=== PATIENT | male | born 1975 | race African-American/Black ===

== ENCOUNTER 2024-03-08 06:53 | Emergency (ER) | payer MEDICAID, OTHER ==
--- NOTE | 2024-03-08 07:25 | ED Physician Documentation ---
PD HPI ABD PAIN - Stated complaint Stated Complaint: ABD PX - Chief complaint Chief Complaint: Abd Pain - History obtained from History obtained from: Patient, Family - Additional information Additional information: 49-year-old gentleman with history of NH and stroke on Plavix with history of coronary stenting presents about 5 days of central crampy abdominal pain that is quite severe. On the first day he was vomiting. That is no longer persistent, but he does have watery diarrhea. No sick contacts. He feels like he has had a fever but without measured temperatures. He does have a history of remote appendectomy and about 5 years ago per the had a colonoscopy showing polyps. PD PAST MEDICAL HISTORY - Past Medical History Past Medical History: Yes Cardiovascular: Hypertension, NH Respiratory: None Neuro: CVA Endocrine/Autoimmune: None GI: None : None Psych: None Musculoskeletal: Chronic back pain Derm: None - Past Surgical History Past Surgical History: Yes General: Appendectomy Ortho: Spine surgery Cardiovascular: Coronary stent, Cardiac catheterization - Present Medications Home Medications: Ambulatory Orders Medication Instructions Recorded Confirmed Amox/Clav 875/125 [Augmentin] 1 each PO Q12H #10 tablet 03/08/24 Atorvastatin Calcium [Lipitor] 80 mg PO HS 03/08/24 03/08/24 Clopidogrel Bisulfate [Plavix] 75 mg PO DAILY 03/08/24 03/08/24 Cyclobenzaprine [Flexeril] 10 mg ORAL TID PRN 03/08/24 03/08/24 Diclofenac Sodium 1% Gel [Voltaren 2 gm TOP QID PRN 03/08/24 03/08/24 Gel] Gabapentin [Neurontin] 400 mg PO DAILY PRN 03/08/24 03/08/24 HYDROcod/ACETAM 5/325 [[place] 5/325] 1 - 2 tab PO Q6H PRN #15 tablet 03/08/24 Lisinopril [Zestril] 40 mg PO DAILY 03/08/24 03/08/24 Metoprolol Succinate [Toprol Xl] 25 mg PO DAILY 03/08/24 03/08/24 Ondansetron Odt [Zofran] 4 mg TL Q6H PRN #10 tablet 03/08/24 amLODIPine [Norvasc] 5 mg PO DAILY 03/08/24 03/08/24 hydroCHLOROthiazide [Hydrodiuril] 12.5 mg PO DAILY 03/08/24 03/08/24 traZODone [Desyrel] 50 mg ORAL HS 03/08/24 03/08/24 - Allergies Allergies/Adverse Reactions: Allergies Allergy/AdvReac Type Severity Reaction Status Date / Time No Known Drug Allergies Allergy Verified 03/08/24 07:01 - Social History Does the pt smoke?: Yes Smoking Status: Current every day smoker Does the pt drink ETOH?: Yes Does the pt have substance abuse?: No - Immunizations Immunizations are current?: Yes PD ED PE NORMAL - Vitals Vital signs reviewed: Yes - General General: Alert and oriented X 3, Other (He appears uncomfortable and he is hypertensive) - Cardiac Cardiac: RRR, No murmur - Respiratory Respiratory: No respiratory distress, Clear bilaterally - Abdomen Abdomen: Normal bowel sounds, Other (Mild diffuse tenderness without surgical signs) - Derm Derm: Normal color, Warm and dry - Neuro Neuro: Alert and oriented X 3 Results - Vitals Vitals: Vital Signs - 24 hr 03/08/24 03/08/24 07:02 07:18 Temperature 37 C Heart Rate 84 70 Respiratory 20 16 Rate Blood Pressure 163/104 H 115/99 H O2 Saturation 98 100 Oxygen O2 Source Room air - Labs Labs: Laboratory Tests 03/08/24 03/08/24 03/08/24 07:24 07:24 08:25 WBC 8.5 RBC 5.29 Hgb 14.6 Hct 45.5 MCV 86.0 MCH 27.6 MCHC 32.1 RDW 15.0 Plt Count 282 MPV 9.3 Neut # (Auto) 6.2 Lymph # (Auto) 1.1 L [place] # (Auto) 1.1 H Eos # (Auto) 0.1 Baso # (Auto) 0.0 Absolute Nucleated RBC 0.00 Nucleated RBC % 0.0 Sodium 139 Potassium 3.7 Chloride 104 Carbon Dioxide 29 Anion Gap 6.0 BUN 10 Creatinine 1.3 Estimated GFR (MDRD) 58 L Glucose 107 H Calcium 8.8 Total Bilirubin 0.3 AST 14 ALT 13 Alkaline Phosphatase 69 Total Protein 6.3 L Albumin 3.9 Globulin 2.4 Albumin/Globulin Ratio 1.6 Lipase 62 Urine Color DARK YELLOW Urine Clarity CLEAR Urine pH 5.5 Ur Specific [place] >=1.030 H Urine Protein NEGATIVE Urine Glucose (UA) NEGATIVE Urine Ketones TRACE Urine Occult Blood NEGATIVE Urine Nitrite NEGATIVE Urine Bilirubin NEGATIVE Urine Urobilinogen 0.2 (NORMAL) Ur Leukocyte Esterase NEGATIVE Ur Microscopic Review NOT INDICATED Urine Culture Comments NOT INDICATED - Rads (name of study) CT abdomen pelvis showing ileal and colonic inflammation. Relevant Findings:: Final report received, EMP independent interpretation of test PD Medical Decision Making - ED course ED course: 49-year-old gentleman presents with diffuse crampy abdominal pain with diarrhea. He is status post remote appendectomy with 5-year-old normal colonoscopy per other than polyps. He received 1 mg of IV Dilaudid and 4 mg of IV Zofran with significant improvement in his symptomatology and resolution of his tenderness. Differential diagnosis includes bowel issue, atypical biliary issue, vascular issue. CBC, CMP were unremarkable. CT suggesting colitis and an infectious colitis would fit his symptomatology. He was unable to give a stool sample here. Will treat him with Augmentin pending follow-up and we stressed the importance of following up for colonoscopy. Departure - Departure Disposition: 01 Home, Self Care Clinical Impression: Colitis Condition: Good Record reviewed to determine appropriate education?: Yes Instructions: ED Gastroenteritis Bacterial Prescriptions: Amox/Clav 875/125 [Augmentin] 1 each PO Q12H #10 tablet HYDROcod/ACETAM 5/325 [[place] 5/325] 1 - 2 tab PO Q6H PRN #15 tablet PRN Reason: Pain Ondansetron Odt [Zofran] 4 mg TL Q6H PRN #10 tablet PRN Reason: Nausea / Vomiting Comments: [facility] in [place]. As discussed, your labs are normal and it appears that you have a case of colitis on the CT. I expect you to be better in a couple of days after the antibiotics start, but you are due for a colonoscopy. Attached to this discharge instruction is a list of local primary care physicians, call to make an appointment to set up for routine care and also referral for colonoscopy. Return for new or worsening symptoms. I am prescribing a short course of narcotic pain medication for you. These are potentially dangerous and addictive medications that should be used carefully. These medications may constipate you. Take an arfi-gyl-vmsuovi stool softener (docusate) twice daily with plenty of water while taking these medications. If you go 24 hours without a bowel movement, take fxho-xbx-qetuxla miralax, per package instructions. Do not drink or drive while taking these medications. If you received narcotic or sedating medications while in the emergency department, do not drive for 24 hours. Store this medication in a safe, secure place and out of reach of children. It is a violation of federal law to give or sell this medication to another person or to use in a manner other than prescribed. The ED will not refill narcotic prescriptions, including prescriptions lost or stolen. To dispose of unwanted medications: 1. [facility] provides a drop box for medication in pill form only (no liquids) 8:00 am to 4:30 p.m. Wednesday-Wednesday in the lobby of the [facility], [address] [place] [address]. Empty pills into ziplock bag before disposal. Call [phone] for information. 2.[employer] is a free service available to all [facility] residents. Go to [email or web address] Note that many narcotic pain relievers also contain Tylenol/acetaminophen. Please ensure that your total dose of acetaminophen from all sources does not exceed 3 g (3000 mg) per day. Forms: PCP List
[2024-03-08 07:31] LABS: BASOPHILS % (AUTO) 0.4 %; EOSINOPHILS # (AUTO) 0.1 10^3/uL (0.0-0.7); EOSINOPHILS % (AUTO) 0.9 %; HCT - HEMATOCRIT 45.5 % (42.0-52.0); HGB - HEMOGLOBIN 14.6 g/dL (14.0-18.0); LYMPHOCYTES # (AUTO) 1.1 10^3/uL (1.5-3.5); LYMPHOCYTES % (AUTO) 12.4 %; MEAN CORPUSCULAR HEMOGLOBIN 27.6 pg (27.0-31.0); MEAN CORPUSCULAR HGB CONC 32.1 g/dL (32.0-36.0); MEAN PLATELET VOLUME 9.3 fL (7.4-11.4); MONOCYTES # (AUTO) 1.1 10^3/uL (0.0-1.0); NEUTROPHILS # (AUTO) 6.2 10^3/uL (1.5-6.6); NEUTROPHILS % (AUTO) 72.9 %; PLT - PLATELET COUNT 282 10^3/uL (130-450); RED BLOOD COUNT 5.29 10^6/uL (4.70-6.10); WHITE BLOOD COUNT 8.5 x10^3/uL (4.8-10.8)
[2024-03-08] MEDS: SODIUM CHLORIDE 0.9% 1,000 ML IV STA (07:32)
[2024-03-08] MEDS: HYDROmorphone 1 MG/ML CARPUJECT IVP STA (07:33)
[2024-03-08] MEDS: ONDANSETRON 4 MG/2 ML VIAL IVP STA (07:33)
[2024-03-08 07:49] LABS: ALBUMIN 3.9 g/dL (3.2-5.5); ALBUMIN/GLOBULIN RATIO 1.6 (1.0-2.2); BILIRUBIN,TOTAL 0.3 mg/dL (0.2-1.0); CALCIUM 8.8 mg/dL (8.5-10.3); CREATININE 1.3 mg/dL (0.6-1.3); POTASSIUM 3.7 mmol/L (3.5-4.5); TOTAL PROTEIN 6.3 g/dL (6.4-8.9)
[2024-03-08 07:57] VITALS: O2SAT 100
[2024-03-08] MEDS ORDERED: iohexoL-300 100 ML VIAL ONE (08:02)
[2024-03-08] MEDS: iohexoL-300 100 ML VIAL IVP ONE (08:23)
[2024-03-08 08:51] LABS: BILIRUBIN,URINE NEGATIVE (NEGATIVE); GLUCOSE, URINE (UA) NEGATIVE (NEGATIVE); KETONES,URINE (UA) TRACE mg/dL (NEGATIVE); LEUKOCYTE ESTERASE, URINE NEGATIVE (NEGATIVE); NITRITE,URINE NEGATIVE (NEGATIVE); OCCULT BLOOD,URINE NEGATIVE (NEGATIVE); PH,URINE 5.5 PH (5.0-7.5); PROTEIN,URINE NEGATIVE (NEGATIVE); UROBILINOGEN,URINE 0.2 (NORMAL) E.U./dL (NORMAL)
[2024-03-08 08:53] LABS: CLARITY,URINE CLEAR (CLEAR)
--- NOTE | 2024-03-08 09:09 | CT Report ---
PROCEDURE: Abdomen/Pelvis W INDICATIONS: iv only, centeral abd pain CONTRAST: Omni 300 100ml TECHNIQUE: After the administration of intravenous contrast, a CT scan of the abdomen and pelvis was performed. Images were recorded and evaluated at appropriate window settings. Reformats: coronal and sagittal. F or radiation dose reduction, the following was used: automated exposure control, adjustment of mA and /or kV according to patient size. COMPARISON: None. FINDINGS: Image quality: Diagnostic. Lower chest: Unremarkable. Liver: No solid mass. Gallbladder: No radiopaque stones or wall thickening. Biliary tree: No intrahepatic or extrahepatic dilation, accounting for age. Spleen: No splenomegaly. Pancreas: No pancreatic ductal dilation. Adrenals: No adrenal nodule. Kidneys and ureters: No hydronephrosis. No renal cystic lesion which requires follow up. No solid mas s. 5 mm nonobstructing left middle pole stone.. Stomach, bowel and peritoneum: There is edematous change in the cecum, ascending colon, transverse co marquez, and proximal and mid descending colon with thumbprinting. Remote appendectomy. Wall thickening i nvolves the terminal ileum. Small bowel otherwise unremarkable. Sparing of the rectum and sigmoid and distal descending colon. Lymph nodes: No central or retroperitoneal adenopathy. Vessels: No infrarenal aortic aneurysm. Patent portal vein. PELVIS Reproductive organs: Unremarkable. Bladder: No abnormal wall thickening, accounting for underdistention. Pelvic lymph nodes: No pelvic adenopathy by size criteria. Bones: No aggressive osseous abnormality. Other: No significant ventral or inguinal hernia. IMPRESSION: Diffuse inflammatory process involving the terminal ileum through the mid descending colon. Consider distal ileitis and segmental colitis. Differential includes infectious versus inflammatory versus isc hemic etiologies. Ischemic etiology is felt unlikely. Recommend clinical correlation. Reviewed by: Rupert Mercado MD on 03/08/2024 9:08 AM PDT Approved by: Rupert Mercado MD on 03/08/2024 9:08 AM PDT Station ID: [id number]
[2024-03-08 09:34] VITALS: BP 167/105
== END 2024-03-08 09:37 | disposition home or self-care (01) ==
LOC: ED 06:53
DX: K52.9 Noninfective gastroenteritis and colitis, unspecified (principal); I25.2 Old myocardial infarction; Z79.02 Long term (current) use of antithrombotics/antiplatelets; I10 Essential (primary) hypertension; Z86.73 Personal history of transient ischemic attack (TIA), and cerebral infarction without residual deficits; Z79.899 Other long term (current) drug therapy; F17.200 Nicotine dependence, unspecified, uncomplicated
CPT/HCPCS: 36415; 74177; 80053; 81003; 83690; 85025; 96374; 99283; 99284; J1170; Q9967; 81001; 87086